=== PATIENT | female | born 2000 | race African-American/Black ===

== ENCOUNTER 2019-12-04 17:03 | Emergency (ER) | payer MEDICAID, SELFPAY ==
[2019-12-04 17:05] VITALS: BP 150/95; PULSE 103; RESP 18; TEMP 37.9; O2SAT 96; BMI 23.3
--- NOTE | 2019-12-04 17:13 | NURSING ---
DAD OF PATIENT CALLED ASKING QUESTIONS. [facility] [phone]
--- NOTE | 2019-12-04 17:57 | ED.VIS.GEN ---
History of Present Illness Chief Complaint: Suicidal Informant: Patient Narrative: 19-year-old female presenting with depression and suicidal ideation with an attempt to cut her own left wrist today. She states that she just feels everybody else would be better off without her because she feels like a burden. She states she has a history of suicidal thoughts but is not made an attempt such as this. She is never try to overdose. She does not have any homicidal ideation. Patient states that otherwise she feels well physically. On arrival today she is noted to have a fever. She goes to the [facility]. She lives in a dorm. Apparently there has been positive Covid?19 test out there. She does not know of anybody that has been ill. Past Medical History - Allergies and Home Meds Allergies/Adverse Reactions: Allergies No Known Allergies Allergy (Verified 12/04/19 17:12) Past Medical History: - - Depression Surgical History: noncontributory Smoking Status: Never smoker Alcohol: None Drugs: None Review of Systems General: Denies: Chills, Fever, Sweats Eyes: Denies: Visual changes - bilaterally, Diplopia ENT: Reports: - - Patient states she was sneezing a lot last evening. Denies: Rhinorrhea, Sore throat Cardiovascular: Denies: Chest pain, Palpitations Respiratory: Denies: Dyspnea, Cough, Dyspnea on exertion Genitourinary: Denies: Dysuria, Hematuria, Frequency Musculoskeletal: Denies: Back pain, Extremity Pain Skin: Denies: Rash, Wounds Neurological: Denies: Headache, Weakness, Numbness Psych: Reports: Depression, Suicidal thoughts, Suicidal ideations, - - Attempt to cut left wrist Physical Exam Vital Signs/Narrative: Vital Signs Temp Pulse Resp BP Pulse Ox 12/04/19 17:05 100.2 F H 103 H 18 150/95 H 96 Inital Vital Signs reviewed: Yes General: Well nourished, No Acute Distress Head: Normocephalic, Atraumatic Eyes: Perrl, EOMI ENT: Moist mucous membranes, No rhinorrhea Cardiovascular: Regular rhythm, Tachycardia Respiratory: No distress, CTA bilaterally, Chest nontender Extremities: Nontender, No edema Skin: Normal color, No rash Neurological: Alert, Oriented x3 Psychological: Depressed, - - Admits to suicidal ideation Diagnostic/Tx/Re-eval Clinical Impression(s) from Imaging Studies Chest X-Ray 12/04/19 18:47 IMPRESSION: No acute cardiopulmonary process identified. Electronically Signed: Wilton Cloud, at 19:09 EDT Tel , Service support , Laboratory Data 12/04/19 12/04/19 12/04/19 18:23 18:58 18:58 WBC 7.5 RBC 4.57 Hgb 13.7 Hct 41.5 MCV 90.8 MCH 30.0 MCHC 33.0 RDW Std Deviation 38.7 RDW Coeff of Angely 11.7 Plt Count 282 MPV 10.6 Immature Gran % (Auto) 0.400 Neut % (Auto) 62.3 Lymph % (Auto) 25.8 Pine % (Auto) 5.0 Eos % (Auto) 6.2 H Baso % (Auto) 0.3 Absolute Neuts (auto) 4.7 Absolute Lymphs (auto) 1.93 Nucleated RBC % 0 Sodium 140 Potassium 3.5 Chloride 109 H Carbon Dioxide 26.0 Anion Gap 5 BUN 12 Creatinine 0.92 Estim Creat Clear Calc 87.77 Est GFR (MDRD) Af Amer 100 Est GFR (MDRD) Non-Af 83 BUN/Creatinine Ratio 13.1 Glucose 104 Calcium 9.1 Serum , Qual Urine Color Urine Clarity Urine pH Ur Specific [place] Urine Protein Urine Glucose (UA) Urine Ketones Urine Occult Blood Urine Nitrite Urine Bilirubin Urine Urobilinogen Ur Leukocyte Esterase Urine RBC Urine WBC Ur Squamous Epith Cells Urine Bacteria Urine Mucus Urine Opiates Screen Urine Methadone Screen Ur Barbiturates Screen Ur Phencyclidine Scrn Ur Amphetamines Screen U Methamphetamin-MDMA U Benzodiazepines Scrn Urine Cocaine Screen U Cannabinoids Screen Ur Drug Screen Comment Ethyl Alcohol COVID-19 (ÓSCAR) Not Detected 12/04/19 12/04/19 12/04/19 18:58 18:58 19:53 WBC RBC Hgb Hct MCV MCH MCHC RDW Std Deviation RDW Coeff of Angely Plt Count MPV Immature Gran % (Auto) Neut % (Auto) Lymph % (Auto) Pine % (Auto) Eos % (Auto) Baso % (Auto) Absolute Neuts (auto) Absolute Lymphs (auto) Nucleated RBC % Sodium Potassium Chloride Carbon Dioxide Anion Gap BUN Creatinine Estim Creat Clear Calc Est GFR (MDRD) Af Amer Est GFR (MDRD) Non-Af BUN/Creatinine Ratio Glucose Calcium Serum , Qual NEGATIVE Urine Color Urine Clarity Urine pH Ur Specific [place] Urine Protein Urine Glucose (UA) Urine Ketones Urine Occult Blood Urine Nitrite Urine Bilirubin Urine Urobilinogen Ur Leukocyte Esterase Urine RBC Urine WBC Ur Squamous Epith Cells Urine Bacteria Urine Mucus Urine Opiates Screen NEGATIVE Urine Methadone Screen NEGATIVE Ur Barbiturates Screen NEGATIVE Ur Phencyclidine Scrn NEGATIVE Ur Amphetamines Screen NEGATIVE U Methamphetamin-MDMA NEGATIVE U Benzodiazepines Scrn NEGATIVE Urine Cocaine Screen NEGATIVE U Cannabinoids Screen NEGATIVE Ur Drug Screen Comment Ethyl Alcohol < 3.0 COVID-19 (ÓSCAR) 12/04/19 19:53 WBC RBC Hgb Hct MCV MCH MCHC RDW Std Deviation RDW Coeff of Angely Plt Count MPV Immature Gran % (Auto) Neut % (Auto) Lymph % (Auto) Pine % (Auto) Eos % (Auto) Baso % (Auto) Absolute Neuts (auto) Absolute Lymphs (auto) Nucleated RBC % Sodium Potassium Chloride Carbon Dioxide Anion Gap BUN Creatinine Estim Creat Clear Calc Est GFR (MDRD) Af Amer Est GFR (MDRD) Non-Af BUN/Creatinine Ratio Glucose Calcium Serum , Qual Urine Color Yellow Urine Clarity Clear Urine pH 6.0 Ur Specific [place] 1.020 Urine Protein Negative Urine Glucose (UA) Normal Urine Ketones Negative Urine Occult Blood Negative Urine Nitrite Negative Urine Bilirubin Negative Urine Urobilinogen Normal Ur Leukocyte Esterase Negative Urine RBC 0 SEEN Urine WBC 0 SEEN Ur Squamous Epith Cells 0-5 SEEN Urine Bacteria RARE Urine Mucus 1+ Urine Opiates Screen Urine Methadone Screen Ur Barbiturates Screen Ur Phencyclidine Scrn Ur Amphetamines Screen U Methamphetamin-MDMA U Benzodiazepines Scrn Urine Cocaine Screen U Cannabinoids Screen Ur Drug Screen Comment Ethyl Alcohol COVID-19 (ÓSCAR) - Medical Decision Making 19-year-old female presenting with suicidal ideation and attempting to cut her left wrist. She states that she feels like it would be better for everybody if she was gone because she did not feel like she is a burden. Patient did present with a low-grade fever therefore Covid testing was performed and was negative. Patient's lab work is unremarkable. It is not consistent with Covid?19. EKG is sinus rhythm at 87 bpm without signs of ischemic change. X-ray was negative. I feel at this point patient is medically clear. Currently I am waiting for the crisis counselor to contact me regarding her. She will be pink slipped. Patient will be signed out to incoming ED doc for follow-up on disposition. Impression: 1. Suicidal ideation 2. Suicide attempt ED Disposition - Plan for ED Patient: Disposition: [facility] Hospital or Unit
--- NOTE | 2019-12-04 17:58 | EKG12_ITS ---
Test Reason : [facility] [place] Blood Pressure : / mmHG Vent. Rate : 087 BPM Atrial Rate : 087 BPM P-R Int : 146 ms QRS Dur : 084 ms QT Int : 340 ms P-R-T Axes : 065 056 029 degrees QTc Int : 409 ms Normal sinus rhythm with sinus arrhythmia Normal ECG Confirmed by JOSE IVERSON, TAYLOR ([id number]), department editor MACK MONTEZ ([id number]) on 12/08/2019 11:24:15 AM Referred By: TY Confirmed By:TAYLOR GRACIA MD
--- NOTE | 2019-12-04 18:11 | NURSING ---
NO OLD EKGS
--- NOTE | 2019-12-04 18:47 | RAD_ITS ---
STUDY: X-RAY CHEST REASON FOR EXAM: Female, 19 years old. Fever TECHNIQUE: Single frontal view of the chest. COMPARISON: None. FINDINGS: Cardiac silhouette unremarkable. Pulmonary vascularity unremarkable. Aorta unremarkable. No focal airspace opacities. No pleural effusions. Upper abdomen unremarkable. Osseous structures intact. No pneumothorax. RAD/Chest 1 View (Portable) IMPRESSION: No acute cardiopulmonary process identified. Electronically Signed: Wilton Cloud, at 19:09 EDT Tel , Service support ,
[2019-12-04 19:12] LABS: Absolute Lymphocyte Count 1.93 X10^3/uL (0.83-4.51); Absolute Neutrophil Count 4.7 X10^3/uL (2.0-7.7); Basophil# 0.02 X10^3/uL; Basophil% 0.3 % (0-1); Eosinophil# 0.46 X10^3/uL; Eosinophils% 6.2 % (0-5); Hematocrit 41.5 % (37-47); Hemoglobin 13.7 g/dL (12.0-15.0); Lymphocyte # 1.93 X10^3/ul (4.0); Lymphocyte % 25.8 % (19-41); Mean Corpuscular Volume 90.8 fL (81-99); Mean Platelet Vol. 10.6 fl (6.2-12.0); Monocyte# 0.37 X10^3/uL; NRBC Flagged by Analyzer 0 % (0-5); Neutrophil # 4.66 X10^3/uL (2.7-7.7); Neutrophil % 62.3 % (47-70); Platelet Count 282 K/mm3 (150-450); RBC Distribution Width CV 11.7 % (11.6-14.6); RBC Distribution Width SD 38.7 fl (35.1-43.9); Red Blood Count 4.57 M/mm3 (4.2-5.4); White Blood Count 7.5 K/mm3 (4.4-11.0)
[2019-12-04 19:32] LABS: Anion Gap 5 (5-15); BUN 12 mg/dL (7-18); BUN/Creat Ratio 13.1 RATIO (10-20); Calcium,Total 9.1 mg/dL (8.5-10.1); Chloride 109 mmol/L (98-107); Creatinine, Serum 0.92 mg/dL (0.55-1.02); EST Glomerular Filtration Rate 83 mL/min (>60); Est Glom Filt Rate - Afr Amer 100 mL/min (>60); Estimated Creatinine Clearance 87.77 ml/min; Glucose 104 mg/dL (74-106); Potassium 3.5 mmol/L (3.5-5.1); Sodium Level 140 mmol/L (136-145)
[2019-12-04 19:48] LABS: Alcohol, Blood (Medical)-Serum < 3.0 mg/dL
[2019-12-04 19:51] LABS: Internal QC Validated? YES +Cl - CLEAR BKGD; Pregnancy, Serum, hCG Quali. NEGATIVE Negative
[2019-12-04 20:02] LABS: Red Blood Cells-Urine 0 SEEN /hpf (0-5); White Blood Cells 0 SEEN /hpf (0-5)
[2019-12-04 20:17] VITALS: RESP 14
[2019-12-04 20:47] LABS: Color, Urine Yellow (Yellow); Glucose, Dipstick Normal (Normal); Ketone-Dipstick Negative (Negative); Leukocyte Esterase-Dipstick Negative /ul (Negative); Nitrite-Dipstick Negative (Negative); Occult Blood-Urine Negative /ul (Negative); Protein-Dipstick Negative (Negative); Urine Bilirubin Dipstick Negative (Negative); Urine Clarity Clear (Clear); Urine Urobilinogen Normal (Normal)
[2019-12-04 20:55] LABS: Amphetamine Urine VISTA NEGATIVE (<1000 ng/mL); Barbiturate Urine VISTA NEGATIVE (< 200 ng/mL); Benzodiazepine Urine VISTA NEGATIVE (< 200 ng/mL); Cocaine Urine VISTA NEGATIVE (< 300 ng/mL); Ecstacy Urine VISTA NEGATIVE (< 500 ng/mL); Methadone Urine VISTA NEGATIVE (< 300 ng/mL); PCP Urine VISTA NEGATIVE (< 25 ng/mL); THC Urine VISTA NEGATIVE (< 50 ng/mL); Vista UDS pH Range 5
[2019-12-04 21:05] VITALS: TEMP 37.1
[2019-12-04 21:13] LABS: Mucous, Urine 1+ /hpf (<or=2+)
[2019-12-04 21:14] LABS: Bacteria RARE /hpf (None Seen); Squamous Epithelial Cells - UA 0-5 SEEN /hpf (5-10)
--- NOTE | 2019-12-04 21:33 | ED.RN ---
REPORT FAXED TO CRISIS, COVID STILL PENDING
[2019-12-04 22:00] VITALS: RESP 16
[2019-12-04 23:00] VITALS: BP 119/81; PULSE 86; RESP 18; TEMP 37; O2SAT 99
[2019-12-05] VITALS (7 sets, daily range): BP systolic 124; BP diastolic 72; PULSE 80; RESP 14–18; O2SAT 99
--- NOTE | 2019-12-05 01:00 | ED.RN ---
contacted patients father Jamal per patients request. Spoke at length about mental health placement policy and procedure. Denies further questions at this time. wishes to be updated on when patient is excepted.
--- NOTE | 2019-12-05 01:02 | ED.RN ---
yohana [place] [phone]
== END 2019-12-05 08:22 ==
PROVIDERS: Emergency Provider Student in an Organized Health Care Education/Training Program
DX: R45.851 Suicidal ideations (principal); F32.9 Major depressive disorder, single episode, unspecified; R50.9 Fever, unspecified; X78.9XXA Intentional self-harm by unspecified sharp object, initial encounter; Y92.214 College as the place of occurrence of the external cause; Y99.9 Unspecified external cause status
CPT/HCPCS: 71045; 80048; 80307; 80320; 81001; 84703; 85025; 87635; 93005; 99285; G0480; U0002